=== PATIENT | male | born 1995 | race African-American/Black ===

== ENCOUNTER 2018-05-31 22:54 | Emergency (ER) | payer SELFPAY ==
[~2018-05-31] VITALS: Ht 185.4 cm; Wt 79.5 kg
[2018-05-31 23:00] VITALS: BP 138/79
== END 2018-06-01 00:20 | disposition left against medical advice (07) ==
LOC: EMS 22:55
DX: M54.2 Cervicalgia (principal); M54.9 Dorsalgia, unspecified; Z53.21 Procedure and treatment not carried out due to patient leaving prior to being seen by health care provider

== ENCOUNTER 2018-10-18 09:20 | Emergency (ER) | payer MEDICAID ==
[~2018-10-18] VITALS: Ht 182.9 cm; Wt 86.4 kg
[2018-10-18] MEDS ORDERED: GABA-531 PO (09:39)
[2018-10-18] MEDS ORDERED: BICT1TAB PO (09:39)
[2018-10-18] MEDS ORDERED: MIRT30 PO (09:39)
[2018-10-18] MEDS ORDERED: PROP10TA73 PO (09:39)
[2018-10-18] MEDS ORDERED: FLUO-191 PO (09:39)
[2018-10-18] MEDS ORDERED: CLON1 PO (09:39)
[2018-10-18 09:56] LABS: BASOPHILS % (AUTO) 0.7 % (0.0-2.0); EOSINOPHILS % (AUTO) 0.4 % (1.0-6.0); HEMATOCRIT 42.7 % (41-53); HEMOGLOBIN 14.4 g/dL (13.5-17.5); LYMPHOCYTES # (AUTO) 2.5 K/uL (1.0-4.8); LYMPHOCYTES % (AUTO) 39.8 % (22.0-44.0); MEAN CORPUSCULAR HEMOGLOBIN 28.8 pg (26.0-34.0); MEAN CORPUSCULAR HGB CONC 33.6 G/dL (31.0-37.0); MEAN CORPUSCULAR VOLUME 86 fL (80-100); MONOCYTES # (AUTO) 1.1 K/uL (0.1-1.0); MONOCYTES % (AUTO) 17.8 % (2.0-9.0); NEUTROPHILS # (AUTO) 2.6 K/uL (1.8-7.7); NEUTROPHILS % (AUTO) 41.3 % (40.0-70.0); PLATELET COUNT (AUTO) 250 K/uL (150-450); RED BLOOD CELL COUNT(AUTO) 4.98 MIL/uL (4.50-5.90); RED CELL DISTRIBUTION WIDTH 14.4 % (11.5-14.5)
[2018-10-18 10:04] LABS: ANION GAP 11 mmol/L (8-16); CALCIUM, TOTAL 9.1 mg/dL (8.8-10.5); CARBON DIOXIDE 26 mmol/L (22-29); CHLORIDE 102 mmol/L (98-107); CREATININE 0.99 mg/dL (0.60-1.30); GLOMERULAR FILTR. RATE CALC > 60 mL/min (>60); GLUCOSE,RANDOM 93 mg/dL (70-110); POTASSIUM 3.6 mmol/L (3.5-5.1); SODIUM SERUM 139 mmol/L (136-145); UREA NITROGEN, BLOOD 6 mg/dL (7-18)
[2018-10-18 10:09] LABS: ALANINE AMINOTRANSFERASE 25 U/L (12-78); ALBUMIN 3.8 g/dL (3.4-5.0); ALKALINE PHOSPHATASE 97 U/L (46-116); ASPARTATE AMINOTRANSFERASE 19 U/L (15-37); BILIRUBIN,TOTAL 0.2 mg/dL (0.1-1.0); TOTAL PROTEIN, SERUM 7.8 g/dL (6.4-8.2)
[2018-10-18 11:26] LABS: AMPHET/METH SCREEN,URINE POSITIVE (NEGATIVE); BARBITURATE SCREEN, URINE NEGATIVE (NEGATIVE); BENZODIAZEPINES SCREEN,URINE NEGATIVE (NEGATIVE); CANNABINOID SCREEN,URINE NEGATIVE (NEGATIVE); COCAINE SCREEN,URINE NEGATIVE (NEGATIVE); METHADONE SCREEN, URINE NEGATIVE (NEGATIVE); OPIATE SCREEN,URINE NEGATIVE (NEGATIVE); PHENCYCLIDINE SCREEN,URINE NEGATIVE (NEGATIVE)
[2018-10-18] MEDS ORDERED: IBUPROFEN 600 MG TABLET PO ONE (11:45)
[2018-10-18] MEDS ORDERED: LORazepam 1 MG TABLET PO ONE ×2 (11:45→12:30)
[2018-10-18 13:49] VITALS: BP 138/84
== END 2018-10-18 14:40 | disposition home or self-care (01) ==
LOC: EMS 09:21
DX: F32.9 Major depressive disorder, single episode, unspecified (principal); F15.10 Other stimulant abuse, uncomplicated
CPT/HCPCS: 36415; 80053; 80307; 85025; 99284; G0480

== ENCOUNTER 2021-07-25 09:14 | Emergency (ER) | payer MEDICAID ==
[~2021-07-25] VITALS: Ht 182.9 cm; Wt 86.4 kg
[~2021-07-25 09:14] MED LIST: BICT1TAB PO; CLON-595 PO; FLUO-191 PO; GABA-1181 PO; MIRT30 PO; PROP10TA73 PO
[2021-07-25 09:20] VITALS: BP 129/82
== END 2021-07-25 10:58 | disposition home or self-care (01) ==
LOC: EMS 09:24
DX: F41.9 Anxiety disorder, unspecified (principal); Z53.21 Procedure and treatment not carried out due to patient leaving prior to being seen by health care provider